=== PATIENT | male | born 1975 | race Caucasian/White ===

== ENCOUNTER → 2023-12-11 | Outpatient (CLI) | payer MEDICARE ==
[~2023-12-11] MED LIST: CELE20TA PO; GEOD20CA14 PO; LITH600C PO; MULTCAP PO; PEPC1TAB5 PO; PERC5TAB12 PO; POTA-165 PO; TRAZ-252 PO
== END ==
LOC: M SOG 09:07
PROVIDERS: ATTEND Orthopaedic Surgery
DX: M54.2 Cervicalgia (principal); M47.812 Spondylosis without myelopathy or radiculopathy, cervical region

== ENCOUNTER 2024-12-15 06:52 | Day surgery (SDC) | payer MEDICARE ==
[~2024-12-15] VITALS: Ht 172.7 cm; Wt 110.9 kg
[~2024-12-15 06:52] MED LIST changes: +BENZ1TAB5 PO; +BUSP15TA47 PO; +GABA-1172 PO; +OMEP-173 PO; +VITA200016 PO; +ZIPR40CA20 PO; +ZOLP10TA2 PO
[2024-12-15] MEDS ORDERED: LR 1,000 ML IV SCH ×2 (07:25→09:40)
[2024-12-15] MEDS ORDERED: LIDOCAINE 2% 100MG/5ML SDV (FOR ANES.) As Ordered ONE (08:06)
[2024-12-15] MEDS ORDERED: propofoL 200 MG/20 ML VIAL As Ordered ONE (08:06)
[2024-12-15] MEDS ORDERED: MIDAZOLAM INJ 2MG/2ML VIAL As Ordered ONE (08:07)
[2024-12-15] MEDS ORDERED: fentaNYL 100 MCG/2 ML INJECTION As Ordered ONE (08:07)
[2024-12-15] MEDS: ceFAZolin SODIUM 2 GM VIAL As Ordered ONE (08:47)
[2024-12-15] MEDS ORDERED: KETOROLAC 30 MG/ML 1ML VIAL As Ordered ONE (09:00)
[2024-12-15] MEDS ORDERED: ONDANSETRON 4MG 2ML VIAL As Ordered ONE (09:00)
[2024-12-15] MEDS ORDERED: ACETAMINOPHEN 1000MG/100ML IV BAG As Ordered ONE (09:00)
[2024-12-15] MEDS ORDERED: ePHEDrine SULFATE 25 MG/5 ML(5MG/ML) SYRINGE As Ordered ONE (09:16)
[2024-12-15] MEDS ORDERED: fentaNYL 100 MCG/2 ML INJECTION IV PRN (09:40)
[2024-12-15] MEDS ORDERED: ONDANSETRON 4MG 2ML VIAL IV PRN (09:40)
[2024-12-15] MEDS ORDERED: oxyCODONE 5MG TAB PO PRN (09:40)
[2024-12-15 11:03] VITALS: BP 123/76; TEMP 96.8; O2SAT 99
== END 2024-12-15 11:11 | disposition home or self-care (01) ==
LOC: M SDC 06:52
PROVIDERS: ATTEND Orthopaedic Surgery Hand Surgery
DX: G56.21 Lesion of ulnar nerve, right upper limb (principal); Z91.041 Radiographic dye allergy status; Z88.8 Allergy status to other drugs, medicaments and biological substances; Z91.013 Allergy to seafood
CPT/HCPCS: 29999; J0131; J0665; J0690; J1100; J1885; J2250; J2405; J3010